=== PATIENT | male | born 1965 | race Caucasian/White ===

== ENCOUNTER 2017-08-08 10:58 | Inpatient (IN) | payer MEDICAID ==
[~2017-08-08] VITALS: Ht 175.3 cm; Wt 88.9 kg
[2017-08-08] MEDS ORDERED: ATAZ300C PO ×2 (13:03)
[2017-08-08] MEDS ORDERED: ATOR20TA65 PO (13:03)
[2017-08-08] MEDS ORDERED: RITO100T PO (13:03)
[2017-08-08] MEDS ORDERED: ABAC1TAB3 PO (13:03)
[2017-08-08] MEDS ORDERED: PANTOPRAZOLE 80 MG in SODIUM CHLORIDE 0.9% 100 ML IV STA (13:06)
[2017-08-08] MEDS ORDERED: PANTOPRAZOLE SODIUM 40 MG/VIAL IV STA (13:06)
[2017-08-08 14:56] LABS: BASOPHILS % 0.2 % (0.0-2.0); EOSINOPHILS % 0.3 % (0.0-5.0); HEMATOCRIT. 42.4 % (42.0-52.0); HEMOGLOBIN. 14.7 g/dL (14.0-18.0); LYMPHOCYTES % 15.7 % (20.0-50.0); MEAN CORPUSCULAR HEMOGLOBIN 32.5 pg (28.0-32.0); MEAN CORPUSCULAR VOLUME 93.5 fL (80.0-94.0); MEAN PLATELET VOLUME 7.3 fl (7.4-10.4); NEUTROPHILS % 76.8 % (40.0-76.0); PLATELET 223 x1000/uL (130-400); RED BLOOD CELL COUNT 4.53 mill/uL (4.7-6.1); RED CELL DISTRIBUTION WIDTH 12.7 % (11.6-14.6)
[2017-08-08 15:00] VITALS: BP 131/81
[2017-08-08 15:02] LABS: INR 1.1
[2017-08-08 15:09] LABS: CARBON DIOXIDE 27 mEq/L (21-32); CHLORIDE 103 mEq/L (98-107); TROPONIN I < 0.02 ng/mL (0.00-0.04)
[2017-08-08] MEDS ORDERED: ACETAMINOPHEN 325MG TABLET PO PRN (17:30)
[2017-08-08] MEDS ORDERED: ONDANSETRON HCL 4MG/2ML VIAL IV PRN (17:30)
[2017-08-08] MEDS ORDERED: MORPHINE SULFATE 2 MG/ML CPJ (NOT FOR IM USE) IV PRN (17:30)
[2017-08-08] MEDS ORDERED: CLONIDINE 0.1MG TABLET PO PRN (17:30)
[2017-08-08 18:28] VITALS: BP 131/89
[2017-08-08 20:00] VITALS: BP 125/74
[2017-08-08] MEDS ORDERED: RITONAVIR 100 MG TABLET PO SCH ×2 (20:00→22:00)
[2017-08-08] MEDS ORDERED: ATAZANAVIR SULFATE 150MG CAPSULE PO SCH (20:00)
[2017-08-08] MEDS: ATORVASTATIN CALCIUM 20MG TABLET PO SCH (20:29)
[2017-08-08] MEDS: DEXT 5%/0.45% NACL 1000ML 1,000 ML IV SCH (21:17)
[2017-08-08] MEDS: ABACAVIR SULFATE PO SCH (21:41)
[2017-08-08] MEDS: LAMIVUDINE PO SCH (21:41)
[2017-08-09] VITALS: BP 132/65
[2017-08-09 04:00] VITALS: BP 122/74
[2017-08-09] MEDS: DEXT 5%/0.45% NACL 1000ML 1,000 ML IV SCH (05:58)
[2017-08-09 07:24] LABS: BASOPHILS % 0.2 % (0.0-2.0); EOSINOPHILS % 1.1 % (0.0-5.0); HEMATOCRIT. 40.7 % (42.0-52.0); HEMOGLOBIN. 14.5 g/dL (14.0-18.0); LYMPHOCYTES % 23.2 % (20.0-50.0); MEAN CORPUSCULAR HEMOGLOBIN 33.1 pg (28.0-32.0); MEAN CORPUSCULAR VOLUME 93.1 fL (80.0-94.0); MEAN PLATELET VOLUME 7.6 fl (7.4-10.4); MONOCYTES % 10.4 % (2.0-8.0); NEUTROPHILS % 65.1 % (40.0-76.0); PLATELET 219 x1000/uL (130-400); RED BLOOD CELL COUNT 4.37 mill/uL (4.7-6.1); RED CELL DISTRIBUTION WIDTH 12.7 % (11.6-14.6)
[2017-08-09 07:26] VITALS: BP 123/85
[2017-08-09] MEDS: ABACAVIR SULFATE PO SCH (07:53)
[2017-08-09] MEDS: ATORVASTATIN CALCIUM 20MG TABLET PO SCH (07:53)
[2017-08-09] MEDS: LAMIVUDINE PO SCH (07:53)
[2017-08-09 08:10] VITALS: BP 124/84
[2017-08-09 08:10] LABS: CARBON DIOXIDE 30 mEq/L (21-32); CHLORIDE 104 mEq/L (98-107)
[2017-08-09 11:46] VITALS: BP 122/84
[2017-08-09] MEDS ORDERED: POTASSIUM CHLORIDE 20MEQ TABLET SR PO SCH (13:00)
[2017-08-09] MEDS ORDERED: RITONAVIR 100 MG TABLET PO SCH (20:00)
== END 2017-08-09 13:21 | disposition home or self-care (01) | DRG 253 ==
LOC: ER 12:14 → ENRESERV 15:44 → 6WST 15:49 → EDBEDREQTM 15:51 → EDBEDREQ 15:51
PROVIDERS: ADMIT Hospitalist; ATTEND Hospitalist
DX: K92.2 Gastrointestinal hemorrhage, unspecified (principal); E83.51 Hypocalcemia; F17.200 Nicotine dependence, unspecified, uncomplicated; F15.90 Other stimulant use, unspecified, uncomplicated; F12.90 Cannabis use, unspecified, uncomplicated; F19.10 Other psychoactive substance abuse, uncomplicated; Z79.899 Other long term (current) drug therapy
CPT/HCPCS: 36415; 71045; 80053; 83690; 84484; 85025; 85610; 85730; 86850; 86900; 93005; 99285; C9113; J2270; J3490; J7030; J7050

== ENCOUNTER 2018-08-03 12:48 | Emergency (ER) | payer MEDICAID ==
[~2018-08-03] VITALS: Ht 175.3 cm; Wt 84.0 kg
[~2018-08-03 12:48] MED LIST: ABAC1TAB3 PO; ATAZ300C PO; ATOR20TA65 PO; RITO100T PO
[2018-08-03 14:18] VITALS: BP 132/85
[2018-08-03] MEDS ORDERED: ABAC1TAB14 MT (14:18)
== END 2018-08-03 19:40 | disposition left against medical advice (07) ==
LOC: ER 13:25
DX: R10.9 Unspecified abdominal pain (principal); R11.2 Nausea with vomiting, unspecified; Z53.21 Procedure and treatment not carried out due to patient leaving prior to being seen by health care provider